=== PATIENT | female | born 2005 | race African-American/Black ===

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

== ENCOUNTER 2025-01-25 17:47 | Emergency (ER) | payer BC, SELFPAY ==
--- NOTE | 2025-01-25 17:51 | ED_ITS ---
HPI - General Adult General Chief complaint: Nausea/Vomiting/Diarrhea Stated complaint: chills/vomiting Time Seen by Provider: 01/25/25 17:51 Source: patient Mode of arrival: ambulatory Limitations: no limitations History of Present Illness HPI narrative: Pt is a 19 y/o female presenting with c/o chills. Additional sx reported include N,V,bodyaches. Sx began last night. Denies presence of blood or bile in emesis. 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 No known direct exposure to COVID,FLU,STREP,PNA. 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 No additional complaints. Related Data Allergies Allergy/AdvReac Type Severity Reaction Status Date / Time No Known Allergies Allergy Verified 01/25/25 18:01 Review of Systems Review of Systems: CONSTITUTIONAL: reports chills, body aches, denies fever, or sweats. EYES: Denies visual changes, redness, or discharge. ENT: Denies rhinorrhea, congestion, sore throat, or otalgia. CARDIOVASCULAR: Denies chest pain, palpitations, or edema. RESPIRATORY: Denies cough or dyspnea. GASTROINTESTINAL:Reports N,V Denies abdominal pain or diarrhea. GENITOURINARY: Denies dysuria or hematuria. SKIN: Denies rash, itching, or wounds. MUSCULOSKELETAL: Denies back pain, joint pain, or myalgia. NEUROLOGIC: Denies headache, numbness, tingling, or weakness. PSYCH: Denies depression or anxiety. All systems reviewed & are unremarkable except as noted in HPI and below PMFSH Past Medical History Medical History No acute medical problems Social History Social History Living arrangements: with family Occupation/Education: student Exam Narrative: GENERAL: Well-appearing, well-nourished, and in no acute distress. HEAD: Normocephalic, atraumatic. EYES: EOMI. No redness or drainage. Conjunctivae normal. ENT: Mucous membranes pink and moist. Nares clear. No rhinorrhea. TMs normal bilaterally. Throat normal. Uvula midline. NECK: Normal AROM. Supple. No lymphadenopathy. CHEST: No respiratory distress. Clear to auscultation. HEART: Regular rate and rhythm. No murmur appreciated. Normal peripheral pulses. ABDOMEN: Soft, nontender, nondistended, normal active bowel sounds. EXTREMITIES: Normal range of motion. No edema. SKIN: Warm, dry, no rash. Capillary refill normal. Normal skin turgor. NEURO: No focal deficits. Alert and oriented x3. Gait steady. PSYCH: Normal affect. No signs of depression or anxiety. Course Course Level of Care: Express Care Visit Discharge Plan Discharge Clinical Impression: Nausea & vomiting, Viral syndrome Patient Disposition: Home Condition: Stable Instructions: Antibiotic Form Additional Instructions: Go straight to ER should your symptoms become worse or should any new symptoms develop Patient Language: Finnish Prescriptions: New ondansetron 4 mg tablet,disintegrating 4 mg PO Q6H PRN (Reason: nausea and vomiting) Qty: 15 0RF Follow-up/Referrals: Juancarlos,Milan Linder DO [Primary Care Provider, Unknown] - 01/26/25 Stand Alone Forms: Work/School Release IP Time of Disposition: 18:00
[2025-01-25 18:00] VITALS: BP 109/68; PULSE 116; RESP 18; TEMP 37.8; O2SAT 100
== END 2025-01-25 18:10 | disposition home or self-care (01) ==
PROVIDERS: Emergency Provider Registered Nurse; PCP Family Medicine
DX: R11.2 Nausea with vomiting, unspecified (principal); B34.9 Viral infection, unspecified
CPT/HCPCS: 99213; G0463